=== PATIENT | male | born 1995 | race Two or more races ===

== ENCOUNTER 2018-06-09 17:23 | Inpatient (IN) | payer OTHER ==
[~2018-06-09] VITALS: Ht 172.7 cm; Wt 79.4 kg
[2018-06-09 17:30] VITALS: BP 132/93
--- NOTE | 2018-06-09 17:30 | NUR ---
ED Nurse Note: Pt brought in to ER by ambulance due to hypotension. per EMS. pt was smoking marihuana and friends who were smoking with him called 911 for being lethargic. pt aao x1-2 and fatigued and skin intact but has wound on Rt side of face and per pt, he fell but he could not recall when and how.
--- NOTE | 2018-06-09 17:59 | Emergency Room Report ---
History of Present Illness General Chief Complaint: General Complaint Source: Patient Present Illness HPI This is a 22-year-old male who is otherwise healthy, complains of nausea and vomiting for the last 2 days. He denies any abdominal pain. He does admit to smoking weed in the last 2 days. He denies any fever, diarrhea, chills, urinary symptoms. Allergies: Coded Allergies: No Known Allergies (Unverified , 06/09/18) Patient History Past Medical History: none Past Surgical History: none Pertinent Family History: none Nursing Documentation-[facility] Past Medical History: No Stated History Review of Systems All Other Systems: negative except mentioned in HPI Physical Exam Vital Signs Date Time Temp Pulse Resp B/P (MAP) Pulse Ox O2 Delivery O2 Flow Rate FiO2 06/09/18 17:24 98.1 96 16 103/56 100 Room Air General Appearance: well appearing, no apparent distress Head: normocephalic, atraumatic ENT: hearing grossly normal, normal voice Neck: full range of motion, supple Respiratory: no respiratory distress, speaking full sentences Musculoskeletal: no calf tenderness Neurologic: alert, normal gait Psychiatric: mood/affect normal Skin: no rash Procedures Critical Care Time Critical Care Time Patient was critical. I spent 40 minutes on this patient. This included reviewing the patient's blood work, history, physical. I also spent considerable amount time talking with consultants. This does not include tending to the patient's. This did not include any procedures. Medical Decision Making Diagnostic Impression: Primary Impression: Hyponatremia Additional Impressions: Hypokalemia Acute kidney injury Laboratory Tests Test 06/09/18 18:10 06/09/18 19:00 06/09/18 19:15 06/09/18 19:29 White Blood Count 26.1 K/UL (4.8-10.8) *H Red Blood Count 5.61 M/UL (4.70-6.10) Hemoglobin 15.5 G/DL (14.2-18.0) Hematocrit 45.4 % (42.0-52.0) Mean Corpuscular Volume 81 FL (80-99) Mean Corpuscular Hemoglobin 27.7 PG (27.0-31.0) Mean Corpuscular Hemoglobin Concent 34.2 G/DL (32.0-36.0) Red Cell Distribution Width 12.5 % (11.6-14.8) Platelet Count 280 K/UL (150-450) Mean Platelet Volume 9.6 FL (6.5-10.1) Neutrophils (%) (Auto) % (45.0-75.0) Lymphocytes (%) (Auto) % (20.0-45.0) Monocytes (%) (Auto) % (1.0-10.0) Eosinophils (%) (Auto) % (0.0-3.0) Basophils (%) (Auto) % (0.0-2.0) Differential Total Cells Counted 100 Neutrophils % (Manual) 79 % (45-75) H Lymphocytes % (Manual) 6 % (20-45) L Monocytes % (Manual) 12 % (1-10) H Eosinophils % (Manual) 0 % (0-3) Basophils % (Manual) 1 % (0-2) Band Neutrophils 2 % (0-8) Platelet Estimate Adequate Platelet Morphology Normal Red Blood Cell Morphology Normal Urine Opiates Screen Negative (NEGATIVE) Urine Barbiturates Screen Negative (NEGATIVE) Phencyclidine (PCP) Screen Negative (NEGATIVE) Urine Amphetamines Screen Negative (NEGATIVE) Urine Benzodiazepines Screen Negative (NEGATIVE) Urine Cocaine Screen Negative (NEGATIVE) Urine Marijuana (THC) Screen Positive (NEGATIVE) H Urine Color Pale yellow Urine Appearance Clear Urine pH 6 (4.5-8.0) Urine Specific Thornton 1.015 (1.005-1.035) Urine Protein 3+ (NEGATIVE) H Urine Glucose (UA) Negative (NEGATIVE) Urine Ketones 1+ (NEGATIVE) H Urine Blood 4+ (NEGATIVE) H Urine Nitrite Negative (NEGATIVE) Urine Bilirubin Negative (NEGATIVE) Urine Urobilinogen Normal MG/DL (0.0-1.0) Urine Leukocyte Esterase Negative (NEGATIVE) Urine RBC 10-15 /HPF (0 - 0) H Urine WBC 2-4 /HPF (0 - 0) Urine Squamous Epithelial Cells None /LPF (NONE/OCC) Urine Uric Acid Crystals Few /LPF (NONE) H Urine Bacteria Few /HPF (NONE) Sodium Level 123 MMOL/L (136-145) L Potassium Level 1.5 MMOL/L (3.5-5.1) *L Chloride Level 70 MMOL/L (98-107) L Carbon Dioxide Level > 45 MMOL/L (21-32) *H Blood Urea Nitrogen 62 mg/dL (7-18) H Creatinine 2.1 MG/DL (0.55-1.30) H Estimate Glomerular Filtration Rate 39.0 mL/min (>60) Glucose Level 112 MG/DL (74-106) H Calcium Level 9.0 MG/DL (8.5-10.1) Magnesium Level 3.4 MG/DL (1.8-2.4) H Total Bilirubin 1.0 MG/DL (0.2-1.0) Aspartate Amino Transferase (AST) 26 U/L (15-37) Alanine Aminotransferase (ALT) 24 U/L (12-78) Alkaline Phosphatase 100 U/L (46-116) Total Protein 7.2 G/DL (6.4-8.2) Albumin 3.7 G/DL (3.4-5.0) Globulin 3.5 g/dL Albumin/Globulin Ratio 1.1 (1.0-2.7) EKG Diagnostic Results EKG Time: 19:10 Rate: normal Rhythm: NSR Other Impression QTc 576ms, no ST Elev or depression Last Vital Signs Date Time Temp Pulse Resp B/P (MAP) Pulse Ox O2 Delivery O2 Flow Rate FiO2 06/09/18 17:24 98.1 96 16 103/56 100 Room Air Disposition: ADMITTED INPATIENT Condition: Serious Scripts No Active Prescriptions or Reported Meds MIKALA SEGURA Jun 09, 2018 17:59
[2018-06-09 18:37] LABS: HEMATOCRIT 45.4 % (42.0-52.0); HEMOGLOBIN 15.5 G/DL (14.2-18.0); MEAN CORPUSCULAR VOLUME 81 FL (80-99); PLATELET COUNT 280 K/UL (150-450); RED BLOOD COUNT 5.61 M/UL (4.70-6.10); RED CELL DISTRIBUTION WIDTH 12.5 % (11.6-14.8)
[2018-06-09 18:47] LABS: WHITE BLOOD COUNT 26.1 K/UL (4.8-10.8)
--- NOTE | 2018-06-09 19:13 | NUR ---
HAND-OFF: Report given to DAVIDE Garza. she will follow up with lab results.
--- NOTE | 2018-06-09 19:14 | NUR ---
ED Nurse Note: Received report from Mauricio Iniguez/DAVIDE. Pt is A/O X 4. will continue to monitor.
--- NOTE | 2018-06-09 19:29 | NUR ---
ED Nurse Note: Repeated blood collected and sent to Lab.
[2018-06-09 19:35] LABS: APPEARANCE,URINE CLEAR; BILIRUBIN, URINE NEGATIVE (NEGATIVE); COLOR,URINE PALE YELLOW; GLUCOSE, URINE (UA) NEGATIVE (NEGATIVE); KETONES,URINE 1+ (NEGATIVE); LEUKOCYTE ESTERASE ,URINE NEGATIVE (NEGATIVE); NITRITE,URINE NEGATIVE (NEGATIVE); PH,URINE 6 (4.5-8.0); PROTEIN,URINE 3+ (NEGATIVE); UROBILINOGEN,URINE NORMAL MG/DL (0.0-1.0)
[2018-06-09 20:12] LABS: ALANINE AMINOTRANSFERASE 24 U/L (12-78); ALBUMIN 3.7 G/DL (3.4-5.0); ALBUMIN/GLOBULIN RATIO 1.1 (1.0-2.7); ALKALINE PHOSPHATASE 100 U/L (46-116); ASPARTATE AMINO TRANSFERASE 26 U/L (15-37); BLOOD UREA NITROGEN 62 mg/dL (7-18); CHLORIDE 70 MMOL/L (98-107); CREATININE 2.1 MG/DL (0.55-1.30); POTASSIUM 1.5 MMOL/L (3.5-5.1); SODIUM 123 MMOL/L (136-145)
[2018-06-09 20:13] LABS: CARBON DIOXIDE > 45 MMOL/L (21-32)
--- NOTE | 2018-06-09 22:09 | NUR ---
NURSE NOTES: Received report from DAVIDE Ross via phone. Explained that pt needs to have completed potassium IV order before sending pt up (k-1.5). Called and spoke with Dr. Thomas and received the following orders: - D5NS @75cc/hr - KCl 40 mEQ IV piggy bank over 4 hours - Regular Diet - CBC, BMP @AM Will input orders once pt is brought to the floor.
[2018-06-09] MEDS ORDERED: D5NS 1,000 ML IV SCH (23:30)
[2018-06-09 23:40] LABS: ANION GAP 2 mmol/L (5-15); BLOOD UREA NITROGEN 52 mg/dL (7-18); CALCIUM 8.2 MG/DL (8.5-10.1); CHLORIDE 81 MMOL/L (98-107); CREATININE 1.9 MG/DL (0.55-1.30); SODIUM 128 MMOL/L (136-145)
[2018-06-09 23:52] LABS: POTASSIUM 2.1 MMOL/L (3.5-5.1)
[2018-06-09 23:53] LABS: CARBON DIOXIDE > 45 MMOL/L (21-32)
--- NOTE | 2018-06-09 23:55 | NUR ---
TRANSFER TO FLOOR: Patient transferred to [facility]/203 as ordered. Report given to Elizabeth/RN. Belongings sent with Pt and rechecked with RN.
[2018-06-10] VITALS: BP 153/99
--- NOTE | 2018-06-10 | NUR ---
NURSE NOTES: Received pt from EXPERIENCE PLANNING STRATEGIST. Pt lethargic but oriented and still running potassium IV through left EJ. Pt weak but able to transfer to bed on his own. Skin abrasions d/t s/p fall found on nasal bridge, left cheek, upper lip, and bilateral upper extremities. Lung sounds clear. Bowel sounds present. Will input Orders. Call light within reach. Bed in lowest position. Will continue to monitor.
--- NOTE | 2018-06-10 02:44 | NUR ---
NURSE NOTES: Called and updated Dr. Thomas on pts abnormal labs. He ordered another 40 meq potassium IVPG and 40 meq PO. Will input orders after last bag of K IV given. Will continue to monitor.
[2018-06-10 04:00] VITALS: BP 163/101
--- NOTE | 2018-06-10 05:55 | NUR ---
NURSE NOTES: Nyasia WILLIS came out. Unable to obtain IV access. Will retry to continue last potassium IV. Will continue to monitor.
--- NOTE | 2018-06-10 07:16 | NUR ---
HAND-OFF: Report given to DAVIDE Workman. Pt stable.
--- NOTE | 2018-06-10 07:20 | NUR ---
NURSE NOTES: Received patient from DAVIDE Johnson in bed, denies any pain. No s/s of acute distress noted. Noted healed scars on head, face. Patient is ambulatory. IV is intact and patent running potassium and D5NS at 75/hr. Bed is in lowest position and brakes engaged for safety. Call light is within reach. Will continue with the plan of care.
[2018-06-10 08:00] VITALS: BP 144/95
--- NOTE | 2018-06-10 08:17 | NUR ---
CASE MANAGEMENT:REVIEW 22YR OLD MALE BIBA FROM HOME CC: FALL AND HYPOTENSION. BECAME LETHARGIC WHILE SMOKING THC SI: HYPONATREMIA. HYPOKALEMIA. CAMI 98.1 96 16 103/56 100% ON RA WBC+26.1 NA-123 K-1.5 CO2>45 BUN+52 CR+2.1 IS: 1L NS BOLUS X2 IV ZOFRAN X1 KCL 40MEQ PO X1 IV KCL X1 : TO TELEMETRY : INTERQUAL CRITERIA MET
[2018-06-10 08:35] LABS: BASOPHILS % (AUTO) 1.7 % (0.0-2.0); EOSINOPHILS % (AUTO) 0.1 % (0.0-3.0); HEMATOCRIT 39.4 % (42.0-52.0); HEMOGLOBIN 13.2 G/DL (14.2-18.0); LYMPHOCYTES % (AUTO) 6.3 % (20.0-45.0); MEAN CORPUSCULAR VOLUME 83 FL (80-99); NEUTROPHILS % (AUTO) 79.9 % (45.0-75.0); PLATELET COUNT 210 K/UL (150-450); RED BLOOD COUNT 4.75 M/UL (4.70-6.10); WHITE BLOOD COUNT 16.2 K/UL (4.8-10.8)
[2018-06-10 09:00] LABS: ANION GAP 2 mmol/L (5-15); BLOOD UREA NITROGEN 41 mg/dL (7-18); CALCIUM 9.3 MG/DL (8.5-10.1); CHLORIDE 85 MMOL/L (98-107); CREATININE 1.8 MG/DL (0.55-1.30); SODIUM 131 MMOL/L (136-145)
[2018-06-10 09:03] LABS: CARBON DIOXIDE 44 MMOL/L (21-32); POTASSIUM 2.2 MMOL/L (3.5-5.1)
--- NOTE | 2018-06-10 09:04 | NUR ---
NURSE NOTES: Dr Thomas ordered Accu-Chek, BS is 198, noroverto SMITH, no new order.
--- NOTE | 2018-06-10 09:08 | NUR ---
NURSE NOTES: Danni Shaikh from Lab called for critical lab results, K 2.2, AND CO2 44. Will notify
[2018-06-10 09:49] LABS: PHOSPHORUS 1.1 MG/DL (2.5-4.9)
[2018-06-10 12:00] VITALS: BP 146/84
[2018-06-10] MEDS: cefTRIAXone 1 GM in D5W 55 ML IVPB SCH (12:12)
[2018-06-10] MEDS: D5NS w/KCl 40mEq 1000ml 1,000 ML IV SCH (12:12)
[2018-06-10] MEDS ORDERED: Potassium Phosphate 30 MM in NS 275 ML IV ONE (13:00)
[2018-06-10 16:00] VITALS: BP 129/93
--- NOTE | 2018-06-10 16:45 | History and Physical Report ---
DATE OF ADMISSION: 06/09/2018 DATE OF EVALUATION: 06/10/2018 HISTORY OF PRESENT ILLNESS: This is a 22-year-old male, who presented to hospital with nausea and vomiting. He states it has been going on for several days. On ER assessment, abdominal pain, although he admitted to smoking weed. On my assessment, the patient is very poorly responsive. I have ordered a stat glucose check. Overnight, he was found to have significant electrolyte abnormalities, leukocytosis, and has been admitted with IV fluid hydration, potassium replacement, antibiotics. PAST MEDICAL HISTORY: None. PAST SURGICAL HISTORY: None. ALLERGIES: None. SOCIAL HISTORY: Not known. REVIEW OF SYSTEMS: Unreliable. PHYSICAL EXAMINATION: GENERAL: Reveals a healthy-appearing male. At this time, he is very lethargic. HEENT: Unremarkable. CHEST: Clear breath sounds bilaterally. HEART: Normal heart sounds. ABDOMEN: Soft. EXTREMITIES: There is no edema. VITAL SIGNS: Blood pressure at this time is 160/100, heart rate 104, respirations 20, he is afebrile, O2 saturation 99% on room air. LABORATORY DATA: Lab testing shows potassium 2.1 overnight, initially was 1.5, bicarbonate 45, BUN 52, creatinine 1.9, glucose 114, magnesium 3.4. Hematology shows white count 20,000 hemoglobin 15, platelet count is normal. Urinalysis shows 4+ blood. Toxicology is positive for marijuana. IMPRESSION: 1. Altered mental status. 2. Hypokalemia. 3. Renal insufficiency. 4. Hyponatremia. 5. Leukocytosis. DISCUSSION: Admit to the hospital. We will start broad-spectrum antibiotics. Start IV fluids. Replace potassium aggressively. Check stat glucose. Order SCDs. We will follow. Jim Thomas M.D. DR: ESTRELLA JOB#: [id number] CC:
--- NOTE | 2018-06-10 17:24 | Cardiology Report ---
APPROVED REPORT EKG Measurement Heart [id number] Normal sinus rhythm Right atrial enlargement Moderate voltage criteria for LVH, may be normal variant Nonspecific ST abnormality Prolonged QT Abnormal ECG
[2018-06-10 18:37] LABS: PHOSPHORUS 0.8 MG/DL (2.5-4.9); POTASSIUM 2.8 MMOL/L (3.5-5.1)
--- NOTE | 2018-06-10 18:51 | NUR ---
NURSE NOTES: phosphorous 0.8, K 2.8, message left with dr parry awaiting to call back.
--- NOTE | 2018-06-10 19:15 | Consultation ---
DATE OF CONSULTATION: 06/10/2018 CONSULTING PHYSICIAN: Boby Wade M.D. REASON FOR CONSULTATION: 1. Hyponatremia. 2. Hypokalemia. 3. Hypophosphatemia. HISTORY OF PRESENT ILLNESS: The patient is a 22-year-old otherwise healthy male who was admitted overnight for evaluation and care of nausea and vomiting for the past three to five days. The patient does admit to smoking marijuana on a regular basis. States he ran out of marijuana on Saturday of last week. He has had multiple falls. Not feeling well with nausea, vomiting, and diarrhea. Feeling dehydrated. He was noted to have electrolyte abnormalities with sodium of 123, potassium of 1.5, and phosphorus of 1.1. PAST MEDICAL HISTORY: None. PAST SURGICAL HISTORY: None FAMILY HISTORY: Noncontributory. REVIEW OF SYSTEMS: NEUROLOGIC: The patient is feeling weak, tired, and fatigued. CARDIOVASCULAR: No chest pain, palpitations, or angina. PULMONARY: No dfficulty breathing, productive cough, or sputum. GASTROINTESTINAL/GENITOURINARY: The patient is having nausea, vomiting, and diarrhea. ENDOCRINOLOGY: No night sweats, fevers, or chills. LABORATORY DATA: Labs dated 06/10/2018, sodium 131, potassium 2.2, bicarb 44, BUN 41, creatinine 1.8, phosphorus 1.1, magnesium 3. PHYSICAL EXAMINATION: VITAL SIGNS: Blood pressure 144/95, respiratory rate 19, pulse 97, and temperature 97.7. GENERAL: The patient is awake and alert, with slow affect. HEENT: Extraocular muscles are intact. No lymphadenopathy. Oropharyngeal mucosa is clear and dry. Facial bruising noted. CARDIOVASCULAR: S1, S2. No rubs or gallops. PULMONARY: Mild upper airway rhonchi. Fair air movement in all lung mooney. ABDOMEN: Soft and nontender. EXTREMITIES: No edema. ASSESSMENT AND PLAN: 1. Marijuana high toxicity syndrome. The patient is having nausea, vomiting, and diarrhea. Smoking marijuana on a regular basis. This could be due to marijuana toxicity syndrome. At this time, we will replace electrolytes and hydrate the patient. 2. Acute kidney injury secondary to volume depletion, has improved. Continue aggressive hydration. As long as renal function improves, no further renal investigations required. 3. Electrolyte abnormalities due to nausea, vomiting, and diarrhea with component of refeeding syndrome. At this time, we will aggressively replace potassium and phosphorus. 4. Hyponatremia secondary to intravascular volume depletion. Continue isotonic solution with normal saline. We will continue to follow this patient on a daily basis. Boby Wade MD DR: JOHN JOB#: [id number] CC:
--- NOTE | 2018-06-10 19:41 | NUR ---
HAND-OFF: Report given to DAVIDE Duffy.Endorsed plan of care.
[2018-06-10 20:00] VITALS: BP 141/92
--- NOTE | 2018-06-10 20:03 | NUR ---
NURSE NOTES: RECEIVED PATIENT RESTING IN BED, NO COMPLAINTS OF PAIN AT THIS TIME. FALL PRECAUTIONS IN PLACE: CALL LIGHT, BEDSIDE TABLE AND URINAL WITHIN REACH, BED IN LOW POSITION AND BED ALARM ON. PLAN OF CARE REVIEWED.
[2018-06-11] VITALS: BP 127/94
[2018-06-11] MEDS: D5NS w/KCl 40mEq 1000ml 1,000 ML IV SCH ×3 (00:20→17:15)
[2018-06-11 04:00] VITALS: BP 129/65
--- NOTE | 2018-06-11 06:43 | NUR ---
CASE MANAGEMENT:REVIEW 06/11/18 SI: HYPONATREMIA. HYPOKALEMIA. CAMI 97.0 102 20 129/65 97% ON RA IS: IV ROCEPHIN Q24 IVF@75/HR : TELEMETRY
--- NOTE | 2018-06-11 07:13 | NUR ---
HAND-OFF: Report given to DAVIDE FRAZIER. PATIENT ASLEEP, NO SIGNS OF DISTRESS NOTED.
--- NOTE | 2018-06-11 07:14 | NUR ---
NURSE NOTES: Received patient from DAVIDE Duffy in bed sleeping. No s/s of pain noted. No s/s of acute distress noted. IV is intact and patent, D5NS running at 75/hr. Bed is in lowest position and brakes engaged for safety. Call light is within reach. Will continue with the plan of care.
[2018-06-11 08:00] VITALS: BP 151/98
[2018-06-11 08:20] LABS: BASOPHILS % (AUTO) 1.3 % (0.0-2.0); EOSINOPHILS % (AUTO) 1.7 % (0.0-3.0); HEMATOCRIT 34.3 % (42.0-52.0); HEMOGLOBIN 11.4 G/DL (14.2-18.0); LYMPHOCYTES % (AUTO) 18.1 % (20.0-45.0); MEAN CORPUSCULAR VOLUME 85 FL (80-99); MONOCYTES % (AUTO) 13.4 % (1.0-10.0); NEUTROPHILS % (AUTO) 65.4 % (45.0-75.0); PLATELET COUNT 211 K/UL (150-450); RED BLOOD COUNT 4.04 M/UL (4.70-6.10); RED CELL DISTRIBUTION WIDTH 13.4 % (11.6-14.8); WHITE BLOOD COUNT 11.7 K/UL (4.8-10.8)
[2018-06-11 09:03] LABS: ANION GAP 7 mmol/L (5-15); BLOOD UREA NITROGEN 16 mg/dL (7-18); CALCIUM 8.5 MG/DL (8.5-10.1); CARBON DIOXIDE 35 MMOL/L (21-32); CHLORIDE 95 MMOL/L (98-107); CREATININE 1.1 MG/DL (0.55-1.30); SODIUM 136 MMOL/L (136-145)
[2018-06-11 09:26] LABS: POTASSIUM 2.4 MMOL/L (3.5-5.1)
--- NOTE | 2018-06-11 09:26 | Pulmonology Progress Note ---
Assessment/Plan Assessment/Plan 1. Altered mental status. 2. Hypokalemia. 3. Renal insufficiency. 4. Hyponatremia. 5. Leukocytosis. 6. Hypophosphatemia DISCUSSION: Continue broad-spectrum antibiotics and IV fluids. Replace potassium and phosphate aggressively. Continue SCDs. I will follow. Jim Thomas M.D. Subjective Interval Events: None new; looking better Constitutional: Reports: no symptoms HEENT: Repors: no symptoms Respiratory: Reports: no symptoms Cardiovascular: Reports: no symptoms Gastrointestinal/Abdominal: Reports: no symptoms Genitourinary: Reports: no symptoms Neurologic: Reports: no symptoms Allergies: Coded Allergies: No Known Allergies (Unverified , 06/09/18) Objective Last 24 Hour Vital Signs Date Time Temp Pulse Resp B/P (MAP) Pulse Ox O2 Delivery O2 Flow Rate FiO2 06/11/18 04:00 97.0 108 20 129/65 (86) 97 06/11/18 04:00 102 06/11/18 00:00 98.0 99 20 127/94 (105) 99 06/11/18 00:00 93 06/10/18 21:00 Room Air 06/10/18 20:00 109 06/10/18 20:00 99.3 107 20 141/92 (108) 98 06/10/18 17:05 101 06/10/18 16:00 98.6 105 19 129/93 (105) 100 06/10/18 12:00 98.2 94 19 146/84 (104) 99 06/10/18 12:00 94 Intake and Output 06/10/18 06/11/18 19:00 07:00 Intake Total 842.5 ml 1157.5 ml Output Total 600 ml 900 ml Balance 242.5 ml 257.5 ml Intake Oral 720 ml 360 ml IV Total 122.5 ml 797.5 ml Output Urine Total 600 ml 900 ml # Bowel Movements 2 General Appearance: no acute distress HEENT: normocephalic Respiratory/Chest: chest wall non-tender, lungs clear Cardiovascular: normal peripheral pulses, normal rate Abdomen: normal bowel sounds, soft, non tender Microbiology Date/Time Source Procedure Growth Status 2/25/19 22:58 Blood Blood Culture - Preliminary NO GROWTH AFTER 24 HOURS Resulted 06/09/18 22:43 Blood Blood Culture - Preliminary NO GROWTH AFTER 24 HOURS Resulted Laboratory Tests 06/10/18 17:55: Potassium Level 2.8L, Phosphorus Level 0.8*L 06/11/18 05:59: Potassium Level [Pending], White Blood Count 11.7H, Red Blood Count 4.04L, Hemoglobin 11.4L, Hematocrit 34.3L, Mean Corpuscular Volume 85, Mean Corpuscular Hemoglobin 28.2, Mean Corpuscular Hemoglobin Concent 33.2, Red Cell Distribution Width 13.4, Platelet Count 211, Mean Platelet Volume 9.0, Neutrophils (%) (Auto) 65.4, Lymphocytes (%) (Auto) 18.1L, Monocytes (%) (Auto) 13.4H, Eosinophils (%) (Auto) 1.7, Basophils (%) (Auto) 1.3, Sodium Level [ Pending], Chloride Level [Pending], Carbon Dioxide Level [Pending], Blood Urea Nitrogen [Pending], Creatinine [Pending], Estimat Glomerular Filtration Rate [ Pending], Glucose Level [Pending], Calcium Level [Pending] Current Medications Medications (Trade) Dose Ordered Sig/Flor Route PRN Reason Start Time Stop Time Status Last Admin Dose Admin Ceftriaxone Sodium 1 gm/ Dextrose 55 ml @ 110 mls/hr Q24H IVPB 06/10/18 12:00 06/17/18 11:59 06/10/18 12:12 Dextrose/ Electrolytes 1,000 ml @ 75 mls/hr [id number] IV 06/10/18 11:00 07/10/18 10:59 06/11/18 04:52 Jim Thomas MD Jun 11, 2018 09:26
[2018-06-11] MEDS ORDERED: Potassium Phosphate 30 MM in NS 275 ML IV ONE (11:00)
[2018-06-11 12:00] VITALS: BP 138/98
[2018-06-11] MEDS: cefTRIAXone 1 GM in D5W 55 ML IVPB SCH (13:00)
[2018-06-11 16:00] VITALS: BP 148/81
--- NOTE | 2018-06-11 19:33 | NUR ---
HAND-OFF: Report given to DAVIDE Johnson.Patient is in stable condition.
--- NOTE | 2018-06-11 19:40 | NUR ---
NURSE NOTES: Received pt from DAVIDE Brown. Pt awake, alert, and talkative. Father at bedside. Call light within reach. IV site intact and patent. Will continue to monitor.
[2018-06-11 20:00] VITALS: BP 131/76
--- NOTE | 2018-06-11 23:52 | NUR ---
NURSE NOTES: IV site came out during sleep. Will attempt another one. Will continue to monitor.
[2018-06-12] VITALS: BP 142/80
[2018-06-12 04:00] VITALS: BP 126/78
[2018-06-12 06:24] LABS: BASOPHILS % (AUTO) 1.1 % (0.0-2.0); EOSINOPHILS % (AUTO) 6.2 % (0.0-3.0); HEMATOCRIT 36.2 % (42.0-52.0); HEMOGLOBIN 11.8 G/DL (14.2-18.0); LYMPHOCYTES % (AUTO) 19.3 % (20.0-45.0); MEAN CORPUSCULAR VOLUME 86 FL (80-99); MONOCYTES % (AUTO) 10.7 % (1.0-10.0); NEUTROPHILS % (AUTO) 62.7 % (45.0-75.0); PLATELET COUNT 236 K/UL (150-450); RED BLOOD COUNT 4.22 M/UL (4.70-6.10); RED CELL DISTRIBUTION WIDTH 13.8 % (11.6-14.8)
[2018-06-12 07:11] LABS: ALANINE AMINOTRANSFERASE 59 U/L (12-78); ALBUMIN 2.7 G/DL (3.4-5.0); ALBUMIN/GLOBULIN RATIO 0.8 (1.0-2.7); ALKALINE PHOSPHATASE 86 U/L (46-116); ANION GAP 7 mmol/L (5-15); ASPARTATE AMINO TRANSFERASE 45 U/L (15-37); BILIRUBIN,TOTAL 0.3 MG/DL (0.2-1.0); BLOOD UREA NITROGEN 11 mg/dL (7-18); CALCIUM 8.6 MG/DL (8.5-10.1); CARBON DIOXIDE 33 MMOL/L (21-32); CHLORIDE 102 MMOL/L (98-107); CREATININE 0.9 MG/DL (0.55-1.30); POTASSIUM 2.9 MMOL/L (3.5-5.1); SODIUM 141 MMOL/L (136-145)
--- NOTE | 2018-06-12 07:25 | NUR ---
HAND-OFF: Report given to DAVIDE Tolbert. Pt stable.
--- NOTE | 2018-06-12 07:45 | NUR ---
NURSE NOTES: Received pt from DAVIDE Johnson. Pt AAO x 4. Call light within reach. IV site intact and patent. Will continue to monitor. @8:05am -Made first attempt to page Dr. Thomas about potassium 2.9, Mg 1.5, and Phos 2.0. Will attempt later on to verify orders.
[2018-06-12 08:00] VITALS: BP 140/89
[2018-06-12] MEDS: D5NS w/KCl 40mEq 1000ml 1,000 ML IV SCH (08:18)
[2018-06-12] MEDS: Magnesium Oxide 400mg tab ORAL SCH ×2 (09:27→13:37)
--- NOTE | 2018-06-12 09:36 | Pulmonology Progress Note ---
Assessment/Plan Assessment/Plan 1. Altered mental status. resolved 2. Hypokalemia. Improved 3. Renal insufficiency. Resolved 4. Hyponatremia. Corrected 5. Leukocytosis. Resolved 6. Hypophosphatemia, Corrected DISCUSSION: Replace K and Mag orally Dc home today if repeat labs are better Jim Thomas M.D. Subjective Interval Events: k 2.9; pHOS NORMAL Constitutional: Reports: no symptoms HEENT: Repors: no symptoms Respiratory: Reports: no symptoms Cardiovascular: Reports: no symptoms Gastrointestinal/Abdominal: Reports: no symptoms Allergies: Coded Allergies: No Known Allergies (Unverified , 06/09/18) Objective Last 24 Hour Vital Signs Date Time Temp Pulse Resp B/P (MAP) Pulse Ox O2 Delivery O2 Flow Rate FiO2 06/12/18 08:00 97.7 103 20 140/89 (106) 96 06/12/18 04:00 92 06/12/18 04:00 98.1 103 126/78 (94) 97 06/12/18 00:00 108 06/12/18 00:00 98.6 95 142/80 (100) 97 06/11/18 21:00 Room Air 06/11/18 20:00 104 06/11/18 20:00 98.5 107 131/76 (94) 99 06/11/18 16:00 106 06/11/18 16:00 98.2 106 20 148/81 (103) 99 06/11/18 12:00 105 06/11/18 12:00 97.9 107 20 138/98 (111) 98 Intake and Output 06/11/18 06/12/18 19:00 07:00 Intake Total 480 ml Output Total 1500 ml 210 ml Balance -1020 ml -210 ml Intake Oral 480 ml Output Urine Total 1500 ml 210 ml # Voids 1 1 General Appearance: no acute distress HEENT: normocephalic Respiratory/Chest: chest wall non-tender, lungs clear Cardiovascular: normal peripheral pulses, normal rate Microbiology Date/Time Source Procedure Growth Status 06/09/18 22:58 Blood Blood Culture - Preliminary Staphylococcus Sp Coag Neg Resulted 06/09/18 22:43 Blood Blood Culture - Preliminary Staphylococcus Sp Coag Neg Resulted Laboratory Tests 06/12/18 05:00: White Blood Count 10.0, Red Blood Count 4.22L, Hemoglobin 11.8L, Hematocrit 36.2L, Mean Corpuscular Volume 86, Mean Corpuscular Hemoglobin 28.0, Mean Corpuscular Hemoglobin Concent 32.6, Red Cell Distribution Width 13.8, Platelet Count 236, Mean Platelet Volume 8.8, Neutrophils (%) (Auto) 62.7, Lymphocytes (% ) (Auto) 19.3L, Monocytes (%) (Auto) 10.7H, Eosinophils (%) (Auto) 6.2H, Basophils (%) (Auto) 1.1, Sodium Level 141, Potassium Level 2.9L, Chloride Level 102, Carbon Dioxide Level 33H, Anion Gap 7, Blood Urea Nitrogen 11, Creatinine 0.9, Estimat Glomerular Filtration Rate > 60, Glucose Level 101, Calcium Level 8.6, Phosphorus Level 2.0L, Magnesium Level 1.5L, Total Bilirubin 0.3, Aspartate Amino Transf (AST/SGOT) 45H, Alanine Aminotransferase (ALT/SGPT) 59, Alkaline Phosphatase 86, Total Protein 5.9L, Albumin 2.7L, Globulin 3.2, Albumin/Globulin Ratio 0.8L Current Medications Medications (Trade) Dose Ordered Sig/Flor Route PRN Reason Start Time Stop Time Status Last Admin Dose Admin Ceftriaxone Sodium 1 gm/ Dextrose 55 ml @ 110 mls/hr Q24H IVPB 06/10/18 12:00 06/17/18 11:59 06/11/18 13:00 Magnesium Oxide (Mag-Ox 400mg) 400 mg THREE TIMES A DAY ORAL 06/12/18 09:15 07/12/18 09:14 06/12/18 09:27 Potassium Chloride (K-Dur) 60 meq ONCE ORAL 06/12/18 09:15 06/12/18 10:15 06/12/18 09:27 Jim Thomas MD Jun 12, 2018 09:36
--- NOTE | 2018-06-12 09:42 | NUR ---
CASE MANAGEMENT:REVIEW 06/12/18 SI: RENAL INSUFF.. HYPOKALEMIA HYPONATREMIA 97.7 103 20 140/89 96% ON RA H/H-11.8/36.2 K-2.9 IS: MAG OXIDE PO TID K-DUR 60MEQ PO X1 IV ROCEPHIN Q24 : TELEMETRY STATUS DCP: FROM HOME
[2018-06-12 12:00] VITALS: BP 141/97
[2018-06-12] MEDS: cefTRIAXone 1 GM in D5W 55 ML IVPB SCH (13:37)
[2018-06-12 16:00] VITALS: BP 144/96
[2018-06-12 16:21] LABS: ANION GAP 7 mmol/L (5-15); BLOOD UREA NITROGEN 12 mg/dL (7-18); CALCIUM 9.1 MG/DL (8.5-10.1); CARBON DIOXIDE 29 MMOL/L (21-32); CHLORIDE 101 MMOL/L (98-107); POTASSIUM 3.5 MMOL/L (3.5-5.1); SODIUM 137 MMOL/L (136-145)
--- NOTE | 2018-06-12 16:45 | NUR ---
Home Discharge: Patient is being discharged from medical care. Awake, alert and oriented x4. Patient verbalized understanding of discharge instructions. Patient need to follow up primary doctor in one week. No prescriptions ordered/given. All medical devices such as IV, heart monitor, and ID band were removed. Patient ambulated out with all personal belongings with steady gait with father to private vehicle.
--- NOTE | 2018-06-12 16:58 | NUR ---
NURSE NOTES: 16:30- Spoke to Dr. Thomas about potassium 3.5 Received order for discharge to home and no prescriptions/medication ordered for home.
--- NOTE | 2018-06-13 12:40 | Discharge Summary ---
Discharge Summary Discharge Summary _ DATE OF ADMISSION: 06/09/2018 DATE OF DISCHARGE: 06/12/2018 DISCHARGED BY: Dr. Josafat Thomas PUBLIC RELATIONS WRITER: Dr. Boby Wade BRIEF HOSPITAL COURSE: Patient is a 22-year-old male, who presented to the hospital due to nausea and vomiting. He stated symptoms had been ongoing for several days. He admitted to smoking weed the past 2 days. He denied any medical history. On evaluation at ED, vital signs were stable. Blood work showed WBC count of 26. Hemoglobin and hematocrit were stable. Sodium was 123, potassium 1.5. Phosphorus 1.1. BUN was 62, creatinine 2.1. Urinalysis showed 3+ protein, 1+ ketones, 4+ blood, negative nitrite, negative leukocyte esterase, 10-15 RBC, 2- 4 WBC. Urine toxicology was positive for marijuana. He was admitted for evaluation of altered mental status, hypokalemia, renal insufficiency and hyponatremia. He was given IV fluids. He was given potassium replacement. Kidney function was monitored. Animal Care Attendant was consulted. Patient had hyponatremia secondary to intravascular volume depletion. He was given isotonic solution with normal saline. He was started empirically on ceftriaxone. He was given potassium, phosphorus and magnesium supplements orally. Hypophosphatemia was corrected. Hyponatremia improved post hydration. Leukocytosis resolved. He was eventually discharged home. FINAL DIAGNOSES: Altered mental status/toxic metabolic encephalopathy, resolved Hypokalemia Hyponatremia Leukocytosis, resolved Hypophosphatemia, corrected Hypomagnesemia Acute kidney injury secondary to volume depletion Marijuana high toxicity syndrome DISPOSITION: Patient was discharged home. DISCHARGE INSTRUCTIONS: Follow-up in a week. I have been assigned to complete a discharge summary on this account, I was not involved with the patient's management. Rosalind Peña NP Jun 13, 2018 12:40
--- NOTE | 2018-06-15 13:08 | NUR ---
CASE MANAGEMENT: CM review and clinical information (face sheet/ ER MD notes/ H&P/ DC summary) faxed to VANDANA FRANKLIN @ [phone].
== END 2018-06-12 16:48 | disposition home or self-care (01) | DRG 682 ==
LOC: EDBD 17:23 → EMR 17:54 → 2E 21:08 → EDBEDREQ 21:35
DX: N17.9 Acute kidney failure, unspecified (principal); G92 Toxic encephalopathy; E87.1 Hypo-osmolality and hyponatremia; E87.6 Hypokalemia; E83.39 Other disorders of phosphorus metabolism; E83.42 Hypomagnesemia; T40.7X1A Poisoning by cannabis (derivatives), accidental (unintentional), initial encounter; F12.188 Cannabis abuse with other cannabis-induced disorder
CPT/HCPCS: 36415; 36600; 80048; 80053; 80307; 81003; 82803; 82962; 83735; 84100; 84132; 85007; 85025; 87040; 87181; 93005; 96361; 96374; 99291; J2405; J8499